=== PATIENT | male | born 1985 | race Caucasian/White ===

== ENCOUNTER 2021-11-18 14:56 | Inpatient (IN) ==
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
[2021-11-18] MEDS ORDERED: IPRATROPIUM/ALBUTEROL 3 ML AMPUL.NEB NEB PRN (19:18)
[2021-11-18] MEDS ORDERED: ONDANSETRON 4 MG/2 ML VIAL IV PRN (19:18)
[2021-11-18] MEDS ORDERED: ACETAMINOPHEN 325 MG TABLET PO PRN (19:18)
[2021-11-18] MEDS: morphine 4 MG/ML VIAL IV PRN (19:40)
[2021-11-18] MEDS ORDERED: morphine 4 MG/ML VIAL ONE (19:49)
[2021-11-18] MEDS ORDERED: ONDANSETRON 4 MG/2 ML VIAL ONE (20:04)
[2021-11-18] MEDS: KETOROLAC 30 MG/ML VIAL IV PRN (20:48)
[2021-11-18] MEDS: DOCUSATE SODIUM 100 MG CAPSULE PO SCH (20:48)
[2021-11-18] MEDS: SENNOSIDES 1 TABLET PO SCH (20:48)
[2021-11-18] MEDS: PIPERACILLIN SODIUM/TAZOBACTAM 3.375 GM in DEXTROSE 5% IN WATER 50 ML IV SCH (20:49)
[2021-11-18] MEDS: 0.9 % SODIUM CHLORIDE 10 ML SYRINGE IV SCH (21:27)
[2021-11-19] MEDS: HYDROcodone/APAP 5/325MG TABLET PO PRN ×4 (02:50→19:25)
[2021-11-19] MEDS: PIPERACILLIN SODIUM/TAZOBACTAM 3.375 GM in DEXTROSE 5% IN WATER 50 ML IV SCH ×4 (02:52→20:34)
[2021-11-19] MEDS: 0.9 % SODIUM CHLORIDE 10 ML SYRINGE IV SCH ×3 (05:39→20:35)
[2021-11-19] MEDS: morphine 4 MG/ML VIAL IV PRN ×2 (06:17→22:38)
[2021-11-19 07:41] LABS: Basophils # (Auto) 0.05 K/mcL (0.00-0.30); Basophils % (Auto) 0.7 % (0.0-2.0); Eosinophils % (Auto) 2.6 % (0.0-7.0); Hematocrit 34.3 % (40.1-51.0); Hemoglobin 11.3 g/dL (13.7-17.5); Lymphocytes % (Auto) 15.9 % (15.5-49.0); Mean Corpuscular HGB Conc 32.9 g/dL (31.0-36.0); Mean Platelet Volume 11.2 fL (8.8-12.5); Monocytes # (Auto) 0.75 K/mcL (0.10-0.90); Monocytes % (Auto) 9.9 % (1.0-12.0); Neutrophils % (Auto) 70.6 % (38.0-78.0); Platelet Count 274 K/mcL (140-440); RBC 3.65 M/mcL (4.63-6.08); Red Cell Distribution Width 12.3 % (11.5-14.5); WBC 7.6 K/mcL (4.5-11.0)
[2021-11-19] MEDS: DOCUSATE SODIUM 100 MG CAPSULE PO SCH ×2 (08:20→20:35)
[2021-11-19] MEDS: KETOROLAC 30 MG/ML VIAL IV PRN ×3 (08:30→22:28)
[2021-11-19 08:41] LABS: ALT/SGPT 29 U/L (<40); AST/SGOT 21 U/L (<40); Albumin 2.8 gm/dL (3.2-5.2); Albumin/Globulin Ratio 0.7 (1.0-2.3); Alkaline Phosphatase 64 U/L (39-117); Bilirubin,Total 0.8 mg/dL (0.1-1.0); Blood Urea Nitrogen 7 mg/dL (6-20); Calcium 8.3 mg/dL (8.6-10.4); Carbon Dioxide 25 mmol/L (22-30); Chloride 104 mmol/L (96-108); Globulin 4.2 gm/dL (2.2-3.7); Glomerular Filtration Rate 69; Glucose 87 mg/dL (70-105)
[2021-11-19] MEDS ORDERED: GADOBENATE DIMEGLUMINE 20 ML/VIAL IV ONE (11:58)
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
--- NOTE | 2021-11-19 14:24 | Magnetic Resonance Report ---
INDICATION: cellulitis/draining wound to left lower leg COMPARISON: November 12, 2021 FINDINGS: Multiplanar multisequence MR images of the left lower extremity were performed before and after administration gadolinium. There is markedly improving cellulitis diffusely of the left lower extremity. There is a wound anterior to the tibia within the soft tissues. Previously this is an abscess. It appears as if it's open today. On today's examination measures 21 x 40 mm. Previously measured 37 x 53 mm. In addition previously contained fluid. On today's exam it appears as if it's opened and drained with some edema. There is no suspicious bone marrow edema and no suspicious enhancement. IMPRESSION: Markedly improving pretibial abscess. On today's exam appears as if it opened and draining. The surrounding cellulitis is also improving. No drainable collections or osteomyelitis. Interpreted and Authenticated by: Thony Eldridge M.D. 11/19/21
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
[2021-11-19] MEDS ORDERED: RIVAROXABAN 20 MG TABLET PO SCH (17:30)
[2021-11-19] MEDS: SENNOSIDES 1 TABLET PO SCH (20:34)
[2021-11-20] MEDS: PIPERACILLIN SODIUM/TAZOBACTAM 3.375 GM in DEXTROSE 5% IN WATER 50 ML IV SCH ×4 (03:09→23:17)
[2021-11-20] MEDS: HYDROcodone/APAP 5/325MG TABLET PO PRN ×3 (03:09→19:24)
[2021-11-20] MEDS: 0.9 % SODIUM CHLORIDE 10 ML SYRINGE IV SCH ×6 (03:10→22:59)
[2021-11-20] MEDS: KETOROLAC 30 MG/ML VIAL IV PRN ×2 (05:28→15:23)
[2021-11-20 07:27] LABS: Basophils # (Auto) 0.06 K/mcL (0.00-0.30); Basophils % (Auto) 0.9 % (0.0-2.0); Eosinophils # (Auto) 0.27 K/mcL (0.00-0.70); Eosinophils % (Auto) 4.2 % (0.0-7.0); Hematocrit 35.5 % (40.1-51.0); Hemoglobin 11.6 g/dL (13.7-17.5); Lymphocytes # (Auto) 1.18 K/mcL (1.50-4.80); Lymphocytes % (Auto) 18.4 % (15.5-49.0); Mean Cell Volume 93.9 fL (80.0-100.0); Mean Corpuscular HGB Conc 32.7 g/dL (31.0-36.0); Mean Platelet Volume 11.2 fL (8.8-12.5); Monocytes # (Auto) 0.69 K/mcL (0.10-0.90); Monocytes % (Auto) 10.8 % (1.0-12.0); Neutrophils % (Auto) 65.1 % (38.0-78.0); Platelet Count 289 K/mcL (140-440); RBC 3.78 M/mcL (4.63-6.08); Red Cell Distribution Width 12.4 % (11.5-14.5); WBC 6.4 K/mcL (4.5-11.0)
[2021-11-20 08:22] LABS: ALT/SGPT 26 U/L (<40); AST/SGOT 14 U/L (<40); Albumin 2.7 gm/dL (3.2-5.2); Albumin/Globulin Ratio 0.7 (1.0-2.3); Alkaline Phosphatase 63 U/L (39-117); Bilirubin,Total 0.5 mg/dL (0.1-1.0); Blood Urea Nitrogen 12 mg/dL (6-20); Calcium 8.4 mg/dL (8.6-10.4); Carbon Dioxide 26 mmol/L (22-30); Chloride 103 mmol/L (96-108); Glomerular Filtration Rate 63; Glucose 88 mg/dL (70-105); Phosphorous 3.9 mg/dL (2.5-4.5)
[2021-11-20] MEDS: DOCUSATE SODIUM 100 MG CAPSULE PO SCH ×2 (08:38→22:58)
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
--- NOTE | 2021-11-20 11:59 | General Surgery Progress Note ---
SUBJECTIVE Subjective Patient information: Note initiated : 11/20/21 at 11:53 am Service Date, if different from initiated Date: [] Patient: Garrett Smith 36 y/o M admitted on 11/18/21 for Lower extremity wounds. Chief Complaint: [] Additional PMFSH (Level 3 Only): Patient had an uneventful night. LEFT medial knee and leg wounds draining heme serous fluid. Constitutional Vitals: Vital Signs Temp Pulse Resp BP Pulse Ox O2 Del Method 97.7 F 60 20 129/79 95 11/20/21 08:00 11/20/21 03:15 11/20/21 08:00 11/20/21 08:00 11/20/21 08:00 11/20/21 08:00 Period Temp Pulse Resp BP Sys/Becker Pulse Ox O2 Del Method O2 Flow Rate Last 24 Hr 97 F-97.7 F 58-67 16-20 122-133/78-87 95-98 Room Air-Room Air Intake and Output 11/19/21 11/20/21 11/20/21 21:59 05:59 13:59 Intake Total 1148 850 Output Total 1100 1700 650 Balance 48 -850 -650 Weight 291 lb 12.8 oz Intake & Output: Intake & Output 11/19/21 11/20/21 11/20/21 21:59 05:59 13:59 Intake Total 1148 850 Output Total 1100 1700 650 Balance 48 -850 -650 Weight 291 lb 12.8 oz Intake: IV 100 50 Zosyn 3.375 gm In Dextrose 5% 100 50 in Water 50 ml @ 100 mls/hr IV Q6H [facility] Rx#:[id number] Oral 1048 800 Output: Void Amount 1100 1700 650 Other: Meal Dinner Percent of Meal Consumed 100% Urine Appearance Clear Clear Clear Urine Color Yellow Yellow Yellow Exam: AVSS. RAFAEL. Unremarkable. No interval changes. LEFT leg and medial knee wounds draining heme serous fluid. REVIEWED MRI. NO muscle or bone pathology noted. Sub cutaneous abscess / hematoma. A/P Narrative A/P Narrative: Assessment: LEFT medial leg calf and medial knee skin and sub cutaneous hematoma vs abscess. Drainage heme serous fluid. Multiple comorbid medical problems are stable. He is on PO anticoagulants for DVT and PE in past. Continue same. Needs OR debridement. Plan of Treatment: Plan: Checked with OR and [facility] floor. NPO from now, For OR later this evening. Plan discussed with patient and his Dia. All Qs answered. Patient agrees to proceed. Time Spent With Patient Time: Total time spent is greater than 50% in coordination of care (as documented) at patient's floor/unit and/or counseling patient: Total time spent with greater than 50% in coordination of care (as documented) at patient's floor/unit and/or counseling patient:: 25 - 35 minutes
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
[2021-11-20] MEDS ORDERED: 0.9 % SODIUM CHLORIDE 1,000 ML IV ONE (13:32)
[2021-11-20] MEDS ORDERED: PROPOFOL 200 MG/20 ML VIAL IV ONE (15:45)
[2021-11-20] MEDS ORDERED: DEXAMETHASONE 10 MG/ML VIAL ONE (15:45)
[2021-11-20] MEDS ORDERED: ONDANSETRON 4 MG/2 ML VIAL ONE (15:45)
[2021-11-20] MEDS ORDERED: KETAMINE 50 MG/ML Syringe (ANEST) IV ONE (15:45)
[2021-11-20] MEDS ORDERED: LIDOCAINE HCL/PF 100 MG/5 ML SYRINGE IV ONE (15:45)
[2021-11-20] MEDS ORDERED: MAGNESIUM SULFATE 2 GM/50 ML BAG IV ONE (15:45)
[2021-11-20] MEDS ORDERED: fentaNYL 250 MCG/5 ML VIAL IV ONE (15:45)
[2021-11-20] MEDS ORDERED: PROMETHAZINE 25 MG/ML VIAL IV PRN (16:07)
[2021-11-20] MEDS ORDERED: NALOXONE HCL 0.4 MG/ML VIAL IV PRN (16:07)
[2021-11-20] MEDS ORDERED: IPRATROPIUM/ALBUTEROL 3 ML AMPUL.NEB NEB PRN (16:07)
[2021-11-20] MEDS ORDERED: ONDANSETRON 4 MG/2 ML VIAL IV PRN (16:07)
[2021-11-20] MEDS ORDERED: diphenhydrAMINE 50 MG/ML VIAL IV PRN (16:07)
[2021-11-20] MEDS ORDERED: LACTATED RINGERS 250 ML IV PRN (16:07)
[2021-11-20] MEDS ORDERED: ACETAMINOPHEN 1,000 MG/100 ML BAG IV ONE (16:07)
[2021-11-20] MEDS ORDERED: LACTATED RINGERS 1,000 ML IV SCH (16:15)
[2021-11-20] MEDS ORDERED: GENTAMICIN SULFATE 800 MG/20 ML VIAL IR ONE (16:54)
[2021-11-20] MEDS: fentaNYL 100 MCG/2 ML VIAL IV PRN ×7 (16:56→17:15)
--- NOTE | 2021-11-20 17:05 | General Surgery Procedure Note ---
Date of procedure: Note initiated : 11/20/21 at 4:59 pm Service Date, if different from initiated Date: [] Pre-op diagnosis: Sepsis. Hematoma abscess LEFTmedial and mid leg Post-op diagnosis: same Procedure: Excision and Dbridement. Pulse lavage irrigation and open packing. Findings: A. LEFT lower medial leg. 6 x 3 x 2.5 CM Undermining @ 6 O'clock 6,5 CM @ 3O'clock 4 CM @ 9 O'clock 3 CM B. LEFT medial upper leg. 7 x 2.5 x 0.5 CM C. LEFT mid anterior leg 4 x 3 x 0.5 CM Grafts/Implants: NONE Anesthesia: GLMA Surgeon: Yaron Negron Estimated blood loss: 50 Description of procedure: Excision, debridement of multiple wounds LEFT leg, pulse lavage and open packing. Condition: stable Disposition: PACU
[2021-11-20] MEDS: MEPERIDINE 25 MG/ML VIAL IV PRN ×2 (17:18→17:25)
[2021-11-20] MEDS ORDERED: HYDROmorphone 0.5 MG/0.5 ML SYRINGE IV PRN (17:34)
[2021-11-20] MEDS ORDERED: HYDROmorphone 0.5 MG/0.5 ML SYRINGE ONE (17:46)
[2021-11-20] MEDS: morphine 4 MG/ML VIAL IV PRN ×2 (19:25→22:59)
[2021-11-20] MEDS: SENNOSIDES 1 TABLET PO SCH (22:58)
[2021-11-20] MEDS: traZODone HCL 50 MG TABLET PO PRN (22:58)
[2021-11-21] MEDS: HYDROcodone/APAP 5/325MG TABLET PO PRN ×4 (01:51→20:20)
[2021-11-21] MEDS: PIPERACILLIN SODIUM/TAZOBACTAM 3.375 GM in DEXTROSE 5% IN WATER 50 ML IV SCH ×5 (05:07→23:55)
[2021-11-21] MEDS: 0.9 % SODIUM CHLORIDE 10 ML SYRINGE IV SCH ×8 (05:07→23:56)
[2021-11-21 07:19] LABS: Basophils # (Auto) 0.06 K/mcL (0.00-0.30); Basophils % (Auto) 0.7 % (0.0-2.0); Eosinophils # (Auto) 0.01 K/mcL (0.00-0.70); Eosinophils % (Auto) 0.1 % (0.0-7.0); Hematocrit 38.6 % (40.1-51.0); Hemoglobin 12.5 g/dL (13.7-17.5); Lymphocytes # (Auto) 0.96 K/mcL (1.50-4.80); Lymphocytes % (Auto) 11.7 % (15.5-49.0); Mean Corpuscular HGB Conc 32.4 g/dL (31.0-36.0); Mean Platelet Volume 11.2 fL (8.8-12.5); Monocytes # (Auto) 0.37 K/mcL (0.10-0.90); Monocytes % (Auto) 4.5 % (1.0-12.0); Neutrophils % (Auto) 82.5 % (38.0-78.0); Platelet Count 324 K/mcL (140-440); RBC 4.02 M/mcL (4.63-6.08); Red Cell Distribution Width 12.2 % (11.5-14.5); WBC 8.2 K/mcL (4.5-11.0)
[2021-11-21 07:43] LABS: ALT/SGPT 29 U/L (<40); AST/SGOT 19 U/L (<40); Albumin 3.4 gm/dL (3.2-5.2); Albumin/Globulin Ratio 0.9 (1.0-2.3); Alkaline Phosphatase 69 U/L (39-117); Bilirubin,Direct < 0.2 mg/dL (0-0.3); Bilirubin,Total 0.5 mg/dL (0.1-1.0); Blood Urea Nitrogen 14 mg/dL (6-20); Calcium 8.7 mg/dL (8.6-10.4); Carbon Dioxide 24 mmol/L (22-30); Chloride 101 mmol/L (96-108); Globulin 3.8 gm/dL (2.2-3.7); Glomerular Filtration Rate 76; Glucose 115 mg/dL (70-105); Lactate Dehydrogenase 230 U/L (135-225); Phosphorous 3.7 mg/dL (2.5-4.5); Triglycerides 103 mg/dL (<150); Uric Acid 3.8 mg/dL (2.5-8.0)
[2021-11-21] MEDS: DOCUSATE SODIUM 100 MG CAPSULE PO SCH ×2 (07:57→20:21)
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
[2021-11-21] MEDS: morphine 4 MG/ML VIAL IV PRN (10:42)
--- NOTE | 2021-11-21 15:45 | General Surgery Progress Note ---
SUBJECTIVE Subjective Patient information: Note initiated : 11/21/21 at 3:41 pm Service Date, if different from initiated Date: [] Patient: Garrett Smith 36 y/o M admitted on 11/18/21 for Lower extremity wounds. Chief Complaint: [] Additional PMFSH (Level 3 Only): 11/21/2021 POD # 1. Resting comfortably. No new complaints or symptoms. Dressings Left leg CDI Constitutional Vitals: Vital Signs Temp Pulse Resp BP Pulse Ox O2 Del Method O2 Flow Rate 98.9 F 75 18 96/58 95 0 11/21/21 15:34 11/21/21 15:34 11/21/21 15:34 11/21/21 15:34 11/21/21 15:34 11/21/21 15:34 11/20/21 17:52 Period Temp Pulse Resp BP Sys/Becker Pulse Ox O2 Del Method O2 Flow Rate Last 24 Hr 96.7 F-98.9 F 51-81 11-22 96-178/58-107 84-100 Room Air-Room Air 0-6 Intake and Output 11/21/21 11/21/21 11/21/21 05:59 13:59 21:59 Intake Total 1050 600 Output Total 1350 625 Balance -300 -25 Weight 291 lb 9.6 oz Intake & Output: Intake & Output 11/21/21 11/21/21 11/21/21 05:59 13:59 21:59 Intake Total 1050 600 Output Total 1350 625 Balance -300 -25 Weight 291 lb 9.6 oz Intake: IV 1050 100 Sodium Chloride 0.9% 1,000 ml @ 1000 100 mls/hr IV .Q10H [facility] Rx#: [id number] Zosyn 3.375 gm In Dextrose 5% 50 100 in Water 50 ml @ 100 mls/hr IV Q6H [facility] Rx#:[id number] Oral 500 Output: Void Amount 1350 625 Other: Urine Appearance Clear Clear Urine Color Pale Bright Yellow # Voids 0 # Bowel Movements 0 Exam: AVSS. At his baseline. Denies pain. LEFT leg dressings CDI TOES PWD FROM. Reviewed labs, A/P Narrative A/P Narrative: Assessment: Satisfactory post surgical progress. Plan of Treatment: Plan: Continue current treatment. Reassess again on Izaiah 11/23/2021 Time Spent With Patient Time: Total time spent is greater than 50% in coordination of care (as documented) at patient's floor/unit and/or counseling patient: Total time spent with greater than 50% in coordination of care (as documented) at patient's floor/unit and/or counseling patient:: 25 - 35 minutes
[2021-11-21] MEDS: RIVAROXABAN 20 MG TABLET PO SCH (17:30)
[2021-11-21] MEDS: SENNOSIDES 1 TABLET PO SCH (20:20)
[2021-11-22] MEDS: morphine 4 MG/ML VIAL IV PRN ×2 (00:31→07:25)
[2021-11-22] MEDS: HYDROcodone/APAP 5/325MG TABLET PO PRN ×4 (03:34→21:54)
[2021-11-22] MEDS: PIPERACILLIN SODIUM/TAZOBACTAM 3.375 GM in DEXTROSE 5% IN WATER 50 ML IV SCH ×4 (05:03→23:44)
[2021-11-22] MEDS: 0.9 % SODIUM CHLORIDE 10 ML SYRINGE IV SCH ×6 (05:04→20:39)
[2021-11-22 07:03] LABS: Basophils # (Auto) 0.09 K/mcL (0.00-0.30); Basophils % (Auto) 1.3 % (0.0-2.0); Eosinophils # (Auto) 0.22 K/mcL (0.00-0.70); Eosinophils % (Auto) 3.2 % (0.0-7.0); Hematocrit 34.6 % (40.1-51.0); Hemoglobin 11.1 g/dL (13.7-17.5); Lymphocytes # (Auto) 1.74 K/mcL (1.50-4.80); Lymphocytes % (Auto) 25.2 % (15.5-49.0); Mean Cell Volume 96.4 fL (80.0-100.0); Mean Corpuscular HGB Conc 32.1 g/dL (31.0-36.0); Mean Platelet Volume 11.7 fL (8.8-12.5); Monocytes % (Auto) 10.1 % (1.0-12.0); Neutrophils % (Auto) 59.9 % (38.0-78.0); Platelet Count 268 K/mcL (140-440); RBC 3.59 M/mcL (4.63-6.08); Red Cell Distribution Width 12.6 % (11.5-14.5); WBC 6.9 K/mcL (4.5-11.0)
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
[2021-11-22] MEDS: DOCUSATE SODIUM 100 MG CAPSULE PO SCH ×2 (09:43→20:39)
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
[2021-11-22] MEDS: RIVAROXABAN 20 MG TABLET PO SCH (17:08)
[2021-11-22] MEDS: SENNOSIDES 1 TABLET PO SCH (20:39)
[2021-11-23] MEDS: HYDROcodone/APAP 5/325MG TABLET PO PRN ×4 (05:19→19:42)
[2021-11-23] MEDS: PIPERACILLIN SODIUM/TAZOBACTAM 3.375 GM in DEXTROSE 5% IN WATER 50 ML IV SCH ×3 (05:20→17:09)
[2021-11-23] MEDS: 0.9 % SODIUM CHLORIDE 10 ML SYRINGE IV SCH ×6 (05:20→21:28)
[2021-11-23 06:58] LABS: Basophils % (Auto) 1.7 % (0.0-2.0); Eosinophils # (Auto) 0.18 K/mcL (0.00-0.70); Eosinophils % (Auto) 3.1 % (0.0-7.0); Hematocrit 37.7 % (40.1-51.0); Hemoglobin 12.3 g/dL (13.7-17.5); Lymphocytes % (Auto) 20.9 % (15.5-49.0); Mean Cell Volume 94.7 fL (80.0-100.0); Mean Corpuscular HGB Conc 32.6 g/dL (31.0-36.0); Mean Platelet Volume 11.4 fL (8.8-12.5); Monocytes # (Auto) 0.63 K/mcL (0.10-0.90); Platelet Count 283 K/mcL (140-440); RBC 3.98 M/mcL (4.63-6.08); Red Cell Distribution Width 12.3 % (11.5-14.5); WBC 5.7 K/mcL (4.5-11.0)
--- NOTE | 2021-11-23 08:08 | Operative Note ---
DATE OF OPERATION: 11/20/2021 PREOPERATIVE DIAGNOSES: 1. Sepsis syndrome. 2. Hematoma. 3. Cutaneous abscesses, left medial leg, upper, mid, and lower third. POSTOPERATIVE DIAGNOSES: 1. Sepsis syndrome. 2. Hematoma. 3. Cutaneous abscesses, left medial leg, upper, mid, and lower third. PROCEDURE: 1. Excision debridement. 2. Pulse lavage irrigation. 3. Open packing. PATHOLOGY: Tissue sample obtained for culture and sensitivities. FINDINGS: 1. Wound left lower medial leg, 6 x 3 x 2.5 cm, undermining at 6 cm for 6.5 cm at 3 o'clock for 4 cm and at 9 o'clock for 3 cm. 2. Wound left medial upper leg 7 x 2.5 x 0.5 cm. 3. Wound left mid anterior leg 4 x 3 x 0.5 cm. SURGEON: Yaron Negron MD ANESTHESIA: General laryngeal mask airway. DESIGNER ARCHITECT: Clif Kuhn CRNA. ESTIMATED BLOOD LOSS: About 50 mL. INSTRUMENT COUNTS: Count of swabs, instruments, and needles was reported to be correct. CONDITION: Operation was well tolerated. He recovered from surgery uneventfully and was taken to in stable condition. INDICATIONS: This patient presented at a peripheral hospital about a week ago with sepsis, presumed to be arising from the skin lesions of left leg. He has previous history of undergoing excision, debridement of cutaneous abscess in that area. In the remote past, he had undergone conservative management of tibia-fibula fracture resulting in deep venous thrombosis and pulmonary embolism. He is on chronic oral anticoagulants. Due to lack of anticipated progress and improvement, he was referred from peripheral hospital to [facility] and admitted to the med/surg floor under hospitalist service. Wound Care was consulted for ongoing treatment and continuation of care. PROCEDURE IN DETAIL: After preoperative evaluation, imaging studies and stabilization of the patient, he was taken to the operating room. He was anesthetized uneventfully in supine position using laryngeal mask airway. Timeout was called. Intravenous antibiotics were already ongoing on the floor at the time. Left lower extremity was widely cleaned, prepped, and draped in the standard fashion. First, we explored the wounds. The fluctuant parts of the left lower medial leg wound were palpated and aspirated using a 10 mL syringe and an 18-gauge needle. This yielded thick subcutaneous adipose tissue and liquified hematoma blood. Careful dissection was carried out and the devitalized tissue around the site was excised in increments. The underlying abscess cavity was now digitally explored and all the nonviable subcutaneous necrotic fat was removed, debrided, and cleaned entirely. Attention was turned to the second wound in the mid anterior schafer. There were already quintana from previous cruciate incision. Presumably, this was attempted at the peripheral hospital. We excised these skin edges and debrided the subcutaneous necrotic fat down to the level of periosteum and fascia. Hemostasis was controlled at every step with electrocoagulation Bovie. The two wounds were not communicating, but were in close proximity with each other. This is a heavyset tall man. The third wound in the medial superior part of the left leg is a chronic wound. This was debrided. It is a stalled wound. The patient had missed previous appointment at the wound care center. We will continue to monitor his progress in the postoperative period and make recommendations as his condition progresses. All three wound sites were thoroughly copiously washed and irrigated. We used first 3 liters of normal saline followed by second 3 liter bag of normal saline mixed with 800 mg of gentamicin solution. Towards completion, the returning fluid was clear. There was no further residual necrotic tissue or adipose debris in the wound bases. At this time, we placed Xeroform gauze in the wound base and reinforced this with unfurled Betadine-soaked 2-inch gauze rolls. These were held in place with ABD pad and reinforced with a Kerlix bandage, Coban, and Pineda bandages, respectively. After the operation, he was transferred to recovery room after extubation. I saw him in PACU and subsequently went and spoke with his , Caroline Smith and with the hospitalist physician material control associate, Dr. Rodgers. VD:yaritza Job ID: [id number] Doc ID: [id number] MD ASH Briceño
[2021-11-23] MEDS: DOCUSATE SODIUM 100 MG CAPSULE PO SCH ×2 (08:41→21:27)
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
--- NOTE | 2021-11-23 11:29 | General Surgery Progress Note ---
SUBJECTIVE Subjective Patient information: Note initiated : 11/23/21 at 11:25 am Service Date, if different from initiated Date: [] Patient: Garrett Smith 36 y/o M admitted on 11/18/21 for Lower extremity wounds. Chief Complaint: [] Additional PMFSH (Level 3 Only): Patient seen with nursing staff. Keen to go home. Constitutional Vitals: Vital Signs Temp Pulse Resp BP Pulse Ox O2 Del Method O2 Flow Rate 98.4 F 67 18 122/79 97 0 11/23/21 08:00 11/23/21 08:00 11/23/21 08:00 11/23/21 08:00 11/23/21 08:00 11/23/21 08:00 11/20/21 17:52 Period Temp Pulse Resp BP Sys/Becker Pulse Ox O2 Del Method O2 Flow Rate Last 24 Hr 97 F-99.3 F 65-93 16-18 104-124/65-80 97-99 Room Air-Room Air Intake and Output 11/22/21 11/23/21 11/23/21 21:59 05:59 13:59 Intake Total 1333 900 Output Total 600 0 Balance 733 900 Weight 283 lb 3 oz Intake & Output: Intake & Output 11/22/21 11/23/21 11/23/21 21:59 05:59 13:59 Intake Total 1333 900 Output Total 600 0 Balance 733 900 Weight 283 lb 3 oz Intake: IV 973 100 Lactated Ringers 1,000 ml @ 20 923 mls/hr IV .Q24H [facility] Rx#: [id number] Zosyn 3.375 gm In Dextrose 5% 50 100 in Water 50 ml @ 100 mls/hr IV Q6H [facility] Rx#:[id number] Oral 360 800 Output: Void Amount 600 0 Other: Meal Dinner Percent of Meal Consumed 100% Urine Color Yellow Pale Stool Size Moderate Moderate Stool Color Brown Stool Consistency Normal for Patient Normal for Patient # Voids 2 3 # Bowel Movements 1 1 Exam: AVSS. No interval changes RAFAEL. Left leg dressing CDI. Final tissue c/s results pending. Patient is already full WB Left foot. A/P Narrative A/P Narrative: Assessment: Slow steady progress Await final tissue c/s results. Primary dressing change 11/24 Plan of Treatment: Plan: CPT. POC as above. Anticipate d/c by 11/24 or so. Out patient f/u at clinic. Reviewed with Dr. Rodgers. Time Spent With Patient Time: Total time spent is greater than 50% in coordination of care (as documented) at patient's floor/unit and/or counseling patient:
[2021-11-23] MEDS: RIVAROXABAN 20 MG TABLET PO SCH (17:09)
[2021-11-23] MEDS: SENNOSIDES 1 TABLET PO SCH (21:27)
[2021-11-23] MEDS: traZODone HCL 50 MG TABLET PO PRN (21:33)
[2021-11-24] MEDS: PIPERACILLIN SODIUM/TAZOBACTAM 3.375 GM in DEXTROSE 5% IN WATER 50 ML IV SCH ×3 (00:11→13:08)
[2021-11-24] MEDS: HYDROcodone/APAP 5/325MG TABLET PO PRN ×5 (00:11→16:50)
[2021-11-24] MEDS: 0.9 % SODIUM CHLORIDE 10 ML SYRINGE IV SCH ×2 (05:01→05:24)
[2021-11-24 06:26] LABS: Basophils # (Auto) 0.09 K/mcL (0.00-0.30); Basophils % (Auto) 1.8 % (0.0-2.0); Eosinophils # (Auto) 0.16 K/mcL (0.00-0.70); Eosinophils % (Auto) 3.2 % (0.0-7.0); Hematocrit 37.8 % (40.1-51.0); Hemoglobin 12.6 g/dL (13.7-17.5); Lymphocytes # (Auto) 1.33 K/mcL (1.50-4.80); Lymphocytes % (Auto) 26.6 % (15.5-49.0); Mean Cell Volume 93.1 fL (80.0-100.0); Mean Corpuscular HGB Conc 33.3 g/dL (31.0-36.0); Mean Platelet Volume 11.3 fL (8.8-12.5); Monocytes # (Auto) 0.79 K/mcL (0.10-0.90); Monocytes % (Auto) 15.8 % (1.0-12.0); Platelet Count 272 K/mcL (140-440); RBC 4.06 M/mcL (4.63-6.08); Red Cell Distribution Width 12.3 % (11.5-14.5)
[2021-11-24] MEDS: DOCUSATE SODIUM 100 MG CAPSULE PO SCH (09:09)
--- NOTE | 2021-11-24 13:34 | General Surgery Progress Note ---
SUBJECTIVE Subjective Patient information: Note initiated : 11/24/21 at 1:26 pm Service Date, if different from initiated Date: [] Patient: Garrett Smith 36 y/o M admitted on 11/18/21 for Lower extremity wounds. Chief Complaint: [] Additional PMFSH (Level 3 Only): Patient seen with Ric Sanders RN Primary dressings and packing removed. Constitutional Vitals: Vital Signs Temp Pulse Resp BP Pulse Ox O2 Del Method O2 Flow Rate 98.3 F 73 18 115/76 95 0 11/24/21 08:00 11/24/21 08:00 11/24/21 08:00 11/24/21 08:00 11/24/21 08:00 11/24/21 08:00 11/20/21 17:52 Period Temp Pulse Resp BP Sys/Becker Pulse Ox O2 Del Method O2 Flow Rate Last 24 Hr 97.7 F-98.7 F 73-89 16-19 104-121/69-81 95-98 Room Air-Room Air Intake and Output 11/23/21 11/24/21 11/24/21 21:59 05:59 13:59 Intake Total 1500 900 240 Balance 1500 900 240 Weight 278 lb 5 oz Intake & Output: Intake & Output 11/23/21 11/24/21 11/24/21 21:59 05:59 13:59 Intake Total 1500 900 240 Balance 1500 900 240 Weight 278 lb 5 oz Intake: IV 50 100 Zosyn 3.375 gm In Dextrose 5% 50 100 in Water 50 ml @ 100 mls/hr IV Q6H [facility] Rx#:[id number] Oral 1450 800 240 Other: Meal Breakfast Percent of Meal Consumed 100% Stool Size Moderate Stool Color Brown Stool Consistency Soft # Voids 2 1 Exam: AVSS. RAFAEL no interval changes. FWB on left leg. L/E: Surgical wounds. POD #4. Packing d/cd. Wound c/s NO growth so far. Nasal swab MRSA Negative. Blood works / labs reviewed. A/P Narrative A/P Narrative: Assessment: Satisfactory progress from wound surgery point. OK to d/c on PO antibiotics. To be seen in Wound Clinic on 11/26/[address] kirkland Hospitalist. Plan of Treatment: Plan: F/u at wound clinic on 11/26/2021 Further recommendations reg. Wound VAC later. Spoke with patient re: anticipated course of events. To come to the clinic with his on . Will review options and come up with plan of care. Time Spent With Patient Time: Total time spent is greater than 50% in coordination of care (as documented) at patient's floor/unit and/or counseling patient: Total time spent with greater than 50% in coordination of care (as documented) at patient's floor/unit and/or counseling patient:: 35 - 50 minutes
== END 2021-11-24 17:48 | disposition home or self-care (01) | DRG 571 ==
LOC: MEDSUR 18:05
PROVIDERS: ADMIT Internal Medicine; ATTEND Internal Medicine